=== PATIENT | female | born 1945 | race Caucasian/White ===

== ENCOUNTER 2018-08-27 11:27 | Emergency (ER) | payer MEDICARE, OTHER ==
--- NOTE | 2018-08-27 13:09 | UC ---
General HPI - HPI Summary HPI Summary: ON 08/24/18, PT TRIPPED ON A BOOT, MISSED A STEP AND INJURED HER R OUTSIDE ANKLE AND FOOT. SHE WRAPPED IT BUT HAS ONGOING BRUISING, PAIN AND SWELLING. SHE GOT AN ABRASION TO HER L ELBOW BUT THAT IS OF NO CONCERN. - History of Current Complaint Stated Complaint: RIGHT ANKLE INJURY Time Seen by Provider: 08/27/18 12:57 Hx Obtained From: Patient Onset/Duration: Sudden Onset Timing: Constant Aggravating: MOVEMENT Associated Signs & Symptoms: Positive: Edema. Negative: Fever - Allergy/Home Medications Allergies/Adverse Reactions: Allergies Allergy/AdvReac Type Severity Reaction Status Date / Time Cephalosporins Allergy Intermediate Itching Verified 08/27/18 12:59 codeine Allergy Intermediate Itching Verified 08/27/18 12:59 Home Medications: Home Medications Aspirin 81 mg CHEW TAB* [Aspirin Low Dose TAB*] 81 mg PO DAILY 08/27/18 [ History Confirmed 08/27/18] Naproxen TAB* [Naprosyn 250 mg TAB*] 500 mg PO Q8H PRN 08/27/18 [History Confirmed 08/27/18] Rosuvastatin Calcium [Crestor] 40 mg PO DAILY 08/27/18 [History Confirmed ] hydroCHLOROthiazide [Hydrochlorothiazide] 12.5 mg PO 08/27/18 [History] PMH/Surg Hx/FS Hx/Imm Hx Endocrine History: Dyslipidemia Cardiovascular History: Hypertension - Surgical History Surgical History: None Surgery Procedure, Year, and Place: 9 T AND A [facility]. C SECTIONS [facility]. JONAH CARPAL TUNELL [facility]. 2007 HYSTERECTOMY AND LYMPHNODE RESECTION [place]. 2007 [facility] 2009 HAND INFECTION [facility] [place]. 2012 BILAT CATARACTS WITH IOL - Family History Known Family History: Positive: Non-Contributory - Social History Occupation: Retired Lives: With Family Substance Use Type: None Review of Systems All Other Systems Reviewed And Are Negative: No Constitutional: Negative: Fever Skin: Positive: Bruising - r ANKLE/FOOT Musculoskeletal: Positive: Edema - R ANKLE/FOOT. Negative: Decreased ROM Neurological: Negative: Weakness, Paresthesia, Numbness Physical Exam Triage Information Reviewed: Yes Appearance: Well-Appearing Vital Signs Reviewed: Yes Eyes: Positive: Conjunctiva Clear Respiratory: Positive: No respiratory distress Cardiovascular: Positive: RRR Musculoskeletal: Positive: Other: - RLE: KNEE AND ACHILLES ARE NON TENDER. PT ABLE TO PLANTAR AND DORSIFLEX WITHOUT DIFFICULTY OR PAIN. LATERAL ANKLE INTO DORSAL FOOT HAS PURPLE BRUISING AND SWELLING. LATERAL ANKLE AND FOOT ARE TENDER. FOOT HAS FULL S/V/M FUNCTION. Neurological: Positive: Alert Psychological: Positive: Normal Response To Family, Age Appropriate Behavior Skin Exam: Normal Diagnostics - Radiology No standard instances Radiology Interpretation Completed By: Radiologist - R ankle=IMPRESSION: NONDISPLACED TRANSVERSE FRACTURE OF THE DISTAL FIBULA. OSTEOARTHRITIS. R foot= per Dr Manzanares by phone, no fx. Report would not viki over. Course/Dx - Diagnoses Provider Diagnosis: Fracture of distal end of right fibula, Right foot sprain Discharge - Sign-Out/Discharge Documenting (check all that apply): Patient Departure All imaging exams completed and their final reports reviewed: Yes - Discharge Plan Condition: Stable Disposition: HOME Patient Education Materials: Ankle Fracture (ED), Foot Sprain (ED) Referrals: Kee Price MD [Medical Doctor] - As Soon As Possible Additional Instructions: CAM BOOT UNTIL CLEARED BY ORTHOPEDICS - Billing Disposition and Condition Condition: STABLE Disposition: Home - Attestation Statements Provider Attestation: Per institutional requirements, I have reviewed the chart, however, I was not consulted specifically or made aware of this patient by the midlevel provider. I did not personally evaluate, interact with , or disposition this patient.
[2018-08-27 13:10] VITALS: BP 138/71
== END 2018-08-27 14:38 | disposition home or self-care (01) ==
LOC: UCCORT 11:27
DX: S82.424A Nondisplaced transverse fracture of shaft of right fibula, initial encounter for closed fracture (principal); S93.601A Unspecified sprain of right foot, initial encounter; W22.8XXA Striking against or struck by other objects, initial encounter; Y92.9 Unspecified place or not applicable; M19.071 Primary osteoarthritis, right ankle and foot; I10 Essential (primary) hypertension; E78.5 Hyperlipidemia, unspecified; Z79.82 Long term (current) use of aspirin; Z79.899 Other long term (current) drug therapy; Z88.1 Allergy status to other antibiotic agents; Z88.5 Allergy status to narcotic agent
CPT/HCPCS: 99212; G0463

== ENCOUNTER 2019-05-02 11:58 | Day surgery (SDC) | payer MEDICARE ==
[~2019-05-02 11:58] MED LIST: Buffered Lidocaine 1% SYRIN* 1 ML/SYRINGE INTRADERM ONE; Lactated Ringers 1000 ML Bag* 1,000 ML IV SCH; Midazolam* 1 MG/ML 2 ML VIAL (2 MG) ONE; fentaNYL* 50 MCG/ML 2 ML VIAL (100 MCG VIAL) ONE
[2019-05-02] MEDS ORDERED: ceFAZolin 2 GM PREMIX in ORs 0 GM/0 ML BAG ONE (12:12)
[2019-05-02] MEDS ORDERED: Bupivacaine 0.25% SDV* 30 ML ONE (13:59)
[2019-05-02] MEDS ORDERED: Clindamycin 900 MG/D5W BAG(*) 900 MG/50 ML BAG IVPB ONE (14:08)
[2019-05-02] MEDS ORDERED: ceFAZolin 2 GM PREMIX in ORs 2 GM/50 ML BAG (FOR ORs ONLY) ONE (14:08)
[2019-05-02] MEDS ORDERED: Propofol* 10 MG/ML 20 ML BTL ONE (14:15)
[2019-05-02] MEDS ORDERED: Ondansetron INJ* 2 MG/ML VIAL ONE (14:15)
[2019-05-02] MEDS ORDERED: Ketorolac INJ* 30 MG/ML 1 ML VIAL ONE (14:15)
[2019-05-02] MEDS ORDERED: Lidocaine 2% PF * 5 ML VIAL ONE (14:15)
[2019-05-02] MEDS ORDERED: Dexamethasone IV* 4 MG/ML 1 ML (4 MG) ONE (14:15)
[2019-05-02] MEDS ORDERED: Naloxone* 0.4 MG/ML 1 ML VIAL IV PRN (14:37)
[2019-05-02] MEDS ORDERED: Acetaminophen TAB* 325 MG PO PRN (14:37)
[2019-05-02] MEDS ORDERED: HYDROmorphone INJ* 0.5 MG/0.5 ML SYRINGE ONE (15:55)
[2019-05-02] MEDS: HYDROmorphone INJ1* 1 MG/ML SYRINGE IV PRN ×2 (15:58→16:09)
[2019-05-02] MEDS ORDERED: Acetaminophen IV 1GM/100ML * 100 ML ONE (16:06)
[2019-05-02] MEDS ORDERED: HYDROcodone/ACETAMIN 5-325 MG* 1 TAB ONE (16:07)
[2019-05-02 17:16] VITALS: BP 149/71
--- NOTE | 2019-05-03 04:35 | OP ---
DATE OF OPERATION: 05/02/19 - MD [facility] DATE OF : 43 SURGEON: Wilber Sarkar MD ESTIMATOR PROJECT MANAGER: MARILYNN Maier ANESTHESIOLOGIST: Dr. Mar. ANESTHESIA: General. PRE-OP DIAGNOSES: 1. Right middle finger mucous cyst. 2. 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 POST-OP DIAGNOSES: 1. Right middle finger mucous cyst. 2. 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 OPERATIVE PROCEDURES: 1. Right thumb carpometacarpal orthoplasty with trapeziectomy. 2. Right partial trapeziectomy. 3. Right distally based flexor carpi radialis tendon transfer for thumb suspension and tendon interposition. 4. Right middle finger mucous cyst excision. INDICATIONS: Hermelinda has the severe thumb arthritis, it is very painful. Additionally, she has a mucous cyst. We had talked about options. She had thought maybe she was going to hold off on the thumb; however, when she came to surgery today said it is bothering her quite a bit again and wants to proceed. She understands the risks associated with all surgery and she wants to proceed. ESTIMATED BLOOD LOSS: 2 mL. COMPLICATIONS: None. FINDINGS: See above and below. DESCRIPTION OF PROCEDURE: Hermelinda was seen in the preoperative holding area. The correct side, site, and procedure were identified. We came back to the operating room. The arm was prepped and draped in the usual fashion and time- out was performed. I went ahead and placed a digital block in the right middle finger with 0.25% plain Marcaine. I then made an A-shaped incision over the dorsum of the middle finger distal interphalangeal joint. The cyst was marginally excised. I went ahead and cauterized the base where it was coming off. I also cauterized the intervals on the radial and ulnar aspect of the joint between the collateral ligament and the terminal extensor tendon. At this point, everything was looking good. The wound was irrigated out and the skin was closed with 4-0 nylon suture. I then made a longitudinal incision over the dorsal radial aspect of the thumb base. Dissection was carried down longitudinally to preserve its sensory nerves. The radial artery was mobilized and retracted out of the way. Subperiosteal and capsular flaps were raised to expose the trapezium. I went ahead and excised the trapezium in its entirety. There was no cartilage on either the distal or proximal aspect. Once I fully excised it, I inspected the scaphotrapezial joint. There was full-thickness cartilage loss there. I then took the osteotome and excised the proximal 3 to 4 mm of the trapezoid. This came out nice and clean. After I excised that portion of the trapezoid, I irrigated out the area and I placed bone wax on the proximal cancellous portion of the trapezoid bone. I then made sequentially larger drill bits from the dorsal radial thumb metacarpal base, brought down to the volar ulnar aspect of the articular surface near the insertion of the FCR tendon. I then made three 1 cm longitudinal incisions over the FCR tendon, one about a centimeter proximal to the wrist flexion crease, the other two about 7 or 8 cm proximal to the left. The tendon sheath was released along the course of the FCR tendon. The FCR tendon was released proximally. The tendon was pulled down into the distal wound. I then shuttled the FCR tendon down into the thumb base wound with two 26-gauge wires. The tendon was split. I took one free tail of the tendon through the bone tunnel. I then placed a DePuy mini Mitek suture anchored in the second metacarpal base. The other end of the tendon was clipped and excised. I set my tension and then sew whipstitch into the free tail of the tendon that had been passed through the bone tunnel. This tail of the tendon was then tied down to the second metacarpal base near the suture anchor. This provided excellent thumb suspension and a nice sling underneath the base of the thumb base. I could not oppose the proximal thumb base to the distal pole of the scaphoid. The remainder of the free tail of the tendon was formed into a mat and secured with 4-0 Ethibond suture. It was then docked as an interposition between the proximal trapezoid and the distal pole of the scaphoid. At this point, everything was looking very nice. The capsule was closed with 4- 0 Vicryl suture. Wound was irrigated out. Skin was closed with 4-0 nylon suture. 0.25% Marcaine was infiltrated. The wounds were dressed and a thumb spica splint with DIP joint free was applied. She was taken to the recovery room in stable condition. [id number]/[facility] #: [id number] [facility]ENTER[facility]ren
== END 2019-05-02 17:28 | disposition home or self-care (01) ==
LOC: OREAST 11:58
PROVIDERS: ATTEND Orthopaedic Surgery Hand Surgery
DX: M18.11 Unilateral primary osteoarthritis of first carpometacarpal joint, right hand (principal); L72.0 Epidermal cyst; I10 Essential (primary) hypertension; I08.0 Rheumatic disorders of both mitral and aortic valves; M19.90 Unspecified osteoarthritis, unspecified site; K21.9 Gastro-esophageal reflux disease without esophagitis; Z86.73 Personal history of transient ischemic attack (TIA), and cerebral infarction without residual deficits
CPT/HCPCS: 88304; 88311; C1713; J0690; J1100; J1170; J1885; J2250; J2405; J2704; J3010; J3490

== ENCOUNTER 2024-01-25 11:39 | Observation (INO) ==
[~2024-01-25 11:39] MED LIST changes: -Buffered Lidocaine 1% SYRIN* 1 ML/SYRINGE INTRADERM ONE; -Lactated Ringers 1000 ML Bag* 1,000 ML IV SCH; +Metoclopramide 5 MG/ML VIAL (10 mg) IV PRN; -Midazolam* 1 MG/ML 2 ML VIAL (2 MG) ONE; +NS 0.45% 1000 ml BAG 1,000 ML IV SCH; +Naloxone 0.4 mg VIAL 0.4 mg/ml 1 ml VIAL IV PRN; +Ondansetron 4 mg VIAL 2 MG/ML 2 ml VIAL IV PRN; +fentaNYL 100 mcg/2 ml 50 MCG/ML VIAL IV PRN; -fentaNYL* 50 MCG/ML 2 ML VIAL (100 MCG VIAL) ONE
[2024-01-25] MEDS ORDERED: Propofol 10 MG/ML 20 ML BTL ONE ×2 (11:42→15:36)
[2024-01-25] MEDS ORDERED: fentaNYL 100 mcg/2 ml 50 MCG/ML VIAL ONE ×2 (11:42→13:10)
[2024-01-25] MEDS ORDERED: Lidocaine 2% PF 5 ML VIAL ONE (11:42)
[2024-01-25] MEDS ORDERED: ceFAZolin 2 GM PREMIX 2 GM/50 ML BAG ONE (12:09)
[2024-01-25] MEDS ORDERED: Tranexamic Acid 1 GM/100ML BAG 2,000 MG/200 ML BAG IV ONE (12:12)
[2024-01-25 12:22] LABS: Rapid COVID-19 Molecular Undetected (Undetected)
[2024-01-25 12:29] LABS: INR 0.93 (0.85-1.14)
[2024-01-25] MEDS ORDERED: ROPIVACAINE 5 MG/ML 30 ML BTL (0.5%) ONE ×2 (13:10→13:16)
[2024-01-25] MEDS ORDERED: Midazolam 2 mg/2 ml VIAL 1 mg/ml 2 ml VIAL (2 mg) ONE (13:10)
[2024-01-25] MEDS ORDERED: Dexamethasone IV 4 MG/ML VIAL 1 ml VIAL ONE ×2 (13:10→14:44)
[2024-01-25] MEDS ORDERED: KETAMINE HCL 10 MG/ML 20 ml VIAL (200 MG) ONE (13:30)
[2024-01-25] MEDS ORDERED: Bupivacaine 0.5% SDV PF 30ML VIAL ONE (13:50)
[2024-01-25] MEDS ORDERED: Ondansetron 4 mg VIAL 2 MG/ML 2 ml VIAL ONE (14:44)
[2024-01-25] MEDS ORDERED: Lactulose 30 ml UDC PO PRN (15:52)
[2024-01-25] MEDS ORDERED: Ondansetron 4 mg VIAL 2 MG/ML 2 ml VIAL IV PRN (15:52)
[2024-01-25] MEDS ORDERED: Ondansetron ODT 4 mg TAB 4 MG TAB PO PRN (15:52)
[2024-01-25] MEDS ORDERED: Morphine 2 MG/ML SYRINGE IV PRN (15:52)
[2024-01-25] MEDS ORDERED: Magnesium Hydroxide LIQ 30 ML UDC PO PRN (15:52)
[2024-01-25] MEDS ORDERED: Calcium Carb (TUMS) 500 mg CHEW TAB PO PRN (15:52)
[2024-01-25] MEDS: Lactated Ringers 1000 ml BAG 1,000 ML IV SCH ×2 (19:24→20:11)
[2024-01-25] MEDS: Scopolamine 1 mg/72hr PATCH TRANSDERM ONE (20:10)
[2024-01-25] MEDS: Buffered Lidocaine 1% SYRIN 1 ml INTRADERM ONE (20:10)
[2024-01-25] MEDS: Acetaminophen IV 1 GM/100ML 1,000 MG/100 ML BAG IV ONE (20:10)
[2024-01-25] MEDS: BUPIVACAINE LIPOSOME INFIL ONE (20:11)
[2024-01-25] MEDS: Magnesium Hydroxide LIQ 30 ML UDC PO SCH (20:16)
[2024-01-25] MEDS: ceFAZolin 2 GM PREMIX 2 GM/50 ML BAG IV SCH (21:48)
[2024-01-26 06:16] LABS: Hematocrit 36.6 % (35-45); Hemoglobin 12.3 g/dL (11.5-14.3); Mean Platelet Volume 8.3 fL (7.5-11.2); Platelet Count 275 10^3/uL (150-450)
[2024-01-26 06:42] LABS: Calcium 9.1 mg/dL (8.6-10.3); Creatinine, Serum 0.78 mg/dL (0.51-0.95); Potassium 3.7 mmol/L (3.5-5.0); eGFR CKD-EPI 77.2 (>60)
[2024-01-26] MEDS: Vitamin THERAPEUTIC TAB PO SCH (07:52)
[2024-01-26] MEDS: Cholecalciferol (VIT D3) 1,000 unit TAB PO SCH (07:52)
[2024-01-27 06:09] LABS: Hematocrit 30.6 % (35-45); Hemoglobin 10.3 g/dL (11.5-14.3); Platelet Count 183 10^3/uL (150-450)
[2024-01-27 09:44] VITALS: BP 115/52
== END 2024-01-27 12:00 | disposition home or self-care (01) ==
LOC: SSU 11:39 → OR 11:39
PROVIDERS: ADMIT Orthopaedic Surgery Adult Reconstructive Orthopaedic Surgery; ATTEND Orthopaedic Surgery Adult Reconstructive Orthopaedic Surgery